=== PATIENT | female | born 1960 ===

== ENCOUNTER 2024-11-28 07:15 | Inpatient (IN) | payer OTHER ==
[~2024-11-28] VITALS: Ht 154.9 cm; Wt 77.1 kg
[2024-11-28 07:32] LABS: URINE APPEARANCE Clear; URINE BILIRRUBIN Negative (NEGATIVE); URINE BLOOD Negative; URINE COLOR Yellow; URINE GLUCOSE Negative (NEGATIVE); URINE KETONE Negative (NEGATIVE); URINE LEUKOCYTE Moderate; URINE NITRATE Negative; URINE PROTEIN Negative (NEGATIVE); URINE UROBILINOGEN 0.2 E.U./dl
[2024-11-28 07:36] LABS: URINE BACTERIA 579.5 uL (0.0-1933); URINE EPITHELIAL CELLS 22.1 uL (0.0-38.8); URINE RBC 20.3 uL (0.0-20.8); URINE WBC 59.6 uL (0.0-23.2)
[2024-11-28] MEDS ORDERED: ZESTRIL5 MG PO (07:38)
[2024-11-28] MEDS ORDERED: ECOTRIN81 MG PO (07:39)
[2024-11-28 07:40] LABS: URINE CAST 0.43 uL (0.0-1.40)
[2024-11-28 07:42] LABS: BASO % 0.3 % (0.1-1.2); EOS # 0.20 (0.04-0.54); EOS % 3.0 % (0.7-7.0); LYMPH # 1.64 (1.18-3.74); LYMPH % 24.8 % (19.3-53.1); MEAN PLATELET VOLUME 10.80 fl (9.4-12.4); MONO # 0.48 (0.24-0.82); MONO % 7.3 % (4.7-12.5); NEUT # 4.25 (1.56-6.13); NEUT % 64.3 % (34.0-71.1); RED CELL DISTRIBUTION WIDTH 12.9 % (11.6-14.4)
[2024-11-28 07:44] VITALS: BP 135/82
[2024-11-28 08:01] LABS: INR 1.0
[2024-11-28 08:07] LABS: ALT/SGPT 34.0 U/L (12-78); AST/SGOT 22.0 U/L (15-37); BILIRUBIN TOTAL 0.45 mg/dL (0.3-1.2); BUN CREA RATIO 29.0 (7.0-25.0); CREATININE SERUM 0.55 mg/dL (0.55-1.02); GFR 111.63; GLOBULINA 3.4 G/DL (2.4-3.5); GLUCOSE FASTING 105.0 mg/dL (65-100); OSMOLALITY SERUM 287.0 MOSM/KG (275-295)
[2024-12-04] MEDS ORDERED: CHLORHEXIDINE GLUCONATE 120 ML BOTTLE TOP ONE (07:00)
[2024-12-04 08:00] VITALS: BP 117/69; O2SAT 95
[2024-12-04] MEDS ORDERED: DEXAMETHASONE SODIUM PHOSPHATE 4 MG/ML VIAL IV ONE (09:30)
[2024-12-04] MEDS ORDERED: ONDANSETRON HCL 2 MG/ML VIAL IV PRN (09:45)
[2024-12-04] MEDS ORDERED: ENALAPRILAT DIHYDRATE 1.25 MG/ML VIAL IV PRN (09:45)
[2024-12-04] MEDS ORDERED: ONDANSETRON HCL 2 MG/ML VIAL ONE (10:43)
[2024-12-04] MEDS ORDERED: ONDANSETRON HCL 2 MG/ML VIAL IV ONE (10:50)
[2024-12-04 16:00] VITALS: BP 108/67; O2SAT 97
[2024-12-04] MEDS ORDERED: DIPHENHYDRAMINE HCL 75 MG,LIDOCAINE HCL 30 ML,MAG HYDROX/ALUMINUM HYD/SIMETH 30 ML PO SCH (17:00)
[2024-12-04] MEDS ORDERED: CYCLOBENZAPRINE HCL 5 MG TABLET PO SCH (17:00)
[2024-12-04] MEDS ORDERED: ACETAMINOPHEN 500 MG GEL..CAP PO SCH (17:00)
[2024-12-04] MEDS ORDERED: TRAMADOL HCL 50 MG TABLET PO SCH (17:00)
[2024-12-04] MEDS ORDERED: PANTOPRAZOLE SODIUM 40 MG/VIAL VIAL IV PUSH SCH (21:00)
[2024-12-05 08:00] VITALS: BP 99/63; O2SAT 97
== END 2024-12-05 18:30 | disposition home or self-care (01) | DRG 627 ==
LOC: O/R 12-04 06:00 → SURH 12-04 07:00
PROVIDERS: ADMIT Surgery; ATTEND Surgery
PROC: 0GBL0ZZ Excision of Right Superior Parathyroid Gland, Open Approach (ICD-10-PCS; 2024-12-04)
PROC: 0GBN0ZZ Excision of Right Inferior Parathyroid Gland, Open Approach (ICD-10-PCS; principal; 2024-12-04 07:00)
DX: D35.1 Benign neoplasm of parathyroid gland (principal); E21.0 Primary hyperparathyroidism